=== PATIENT | female | born 1955 | race Two or more races ===

== ENCOUNTER 2018-03-09 07:45 | Inpatient (IN) | payer BC ==
[2018-03-09] MEDS ORDERED: DILTIAZEM HCL INJ 25 MG/5 ML VIAL IV ONE (08:24)
[2018-03-09] MEDS ORDERED: ASPIRIN 325 MG TABLET PO ONE (08:24)
[2018-03-09] MEDS ORDERED: DILTIAZEM HCL/D5W 125 MG/125 ML RTUINJ IV PRN (08:24)
[2018-03-09] MEDS ORDERED: METOPROLOL TARTRATE 25 MG TABLET PO ONE (08:25)
--- NOTE | 2018-03-09 08:26 | ER Document Report ---
ED Cardiac - General Chief Complaint: Palpitations Stated Complaint: IRREGULAR HEART BEAT Time Seen by Provider: 03/09/18 07:52 Notes: This is a 62-year-old female known history of A. fib with RVR. History of cardioversion with electricity 2 and medicine 1. Had ablation therapy done a few years ago. Developed rapid heart rate at around 6 AM this morning. No shortness of breath. No chest pain. No other major symptoms at this time. Denies any significant swelling in her legs. TRAVEL OUTSIDE OF THE [place] IN LAST 30 DAYS: No - HPI Patient complains to provider of: Palpitations. denies: Shortness of breath Use of: denies: Alcohol, Amphetamines, Bath salts, Caffeine, Cocaine, Decongestants, Other Was the onset of pain: Sudden Is the pain a: Chronic problem Quality of pain: None - Related Data Allergies/Adverse Reactions: No Known Allergies Allergy (Unverified 03/09/18 07:48) Past Medical History - General Information source: Patient - Social History Smoking Status: Current Every Day Smoker Chew tobacco use (# tins/day): No Frequency of alcohol use: Occasional Drug Abuse: None Family History: CAD Patient has suicidal ideation: No Patient has homicidal ideation: No - Past Medical History Cardiac Medical History: Reports: Hx Atrial Fibrillation - episodes Renal/ Medical History: Denies: Hx Peritoneal Dialysis Past Surgical History: Reports: Hx Tubal Ligation Review of Systems - Review of Systems Notes: Constitutional: denies: Chills, Diaphoresis, Fever, Malaise, Weakness EENT: denies: Eye discharge, Blurred vision, Tearing, Double vision, Nose congestion, Nose discharge, Throat swelling, Mouth pain Cardiovascular: denies: Chest pain or shortness of breath, denies edema. Positive for palpitations and tachycardia Respiratory: denies: Cough, Hurts to breathe, Wheezing, Shortness of breath Gastrointestinal: denies: Abdominal pain, Diarrhea, Nausea, Vomiting, Black stools, bright red blood in stool Genitourinary: denies: Burning, Dysuria, Discharge, Frequency, Flank pain, Hematuria Musculoskeletal: denies: Joint pain, Joint swelling, Muscle pain, Muscle stiffness, back pain Hematologic/Lymphatic: denies: Anemia, Easy bleeding, Easy bruising, Blood clots Neurological/Psychological: denies: Confusion, Dementia, Depression, Loss of consciousness Skin: No lesions, no masses, no skin breakdown, no abscesses Physical Exam - Vital signs Vitals: Pulse Resp BP Pulse Ox 145 H 20 107/79 97 03/09/18 07:51 03/09/18 07:51 03/09/18 07:51 03/09/18 07:51 Interpretation: Tachycardic - General General appearance: Appears well, Alert - HEENT Head: Normocephalic, Atraumatic Eyes: Normal Pupils: PERRL - Respiratory Respiratory status: No respiratory distress Chest status: Nontender Breath sounds: Normal Chest palpation: Normal - Cardiovascular Rhythm: Irregularly irregular, Tachycardia Heart sounds: Normal auscultation Murmur: No - Abdominal Inspection: Normal Distension: No distension Bowel sounds: Normal Tenderness: Nontender Organomegaly: No organomegaly - Back Back: Normal, Nontender - Extremities General upper extremity: Normal inspection, Nontender, Normal color, Normal ROM , Normal temperature General lower extremity: Normal inspection, Nontender, Normal color, Normal ROM , Normal temperature, Normal weight bearing. No: Chau's sign - Neurological Neuro grossly intact: Yes Cognition: Normal Orientation: AAOx4 [place] Coma Scale Eye Opening: Spontaneous [place] Coma Scale Verbal: Oriented Amber Coma Scale Motor: Obeys Commands Amber Coma Scale Total: 15 Speech: Normal Motor strength normal: LUE, RUE, LLE, RLE Sensory: Normal - Psychological Associated symptoms: Normal affect, Normal mood - Skin Skin Temperature: Warm Skin Moisture: Dry Skin Color: Normal Course - Re-evaluation Re-evalutation: 03/09/18 10:30 Patient with A. fib with rapid ventricular response with heart rate in the 140s. Not on anticoagulation but reports symptoms began suddenly at 6 AM. At this time starting on diltiazem bolus and diltiazem drip. Resting comfortably at this time. Will consult with hospitalist for admission at this time. 03/09/18 10:32 Laboratory 03/09/18 03/09/18 03/09/18 08:21 08:21 08:21 WBC 5.8 RBC 4.66 Hgb 14.9 Hct 43.7 MCV 94 MCH 32.1 MCHC 34.2 RDW 14.3 H Plt Count 268 Seg Neutrophils % 58.0 Lymphocytes % 33.0 Monocytes % 7.4 Eosinophils % 1.1 Basophils % 0.5 Absolute Neutrophils 3.4 Absolute Lymphocytes 1.9 Absolute Monocytes 0.4 Absolute Eosinophils 0.1 Absolute Basophils 0.0 Sodium 143.3 Potassium 4.0 Chloride 106 Carbon Dioxide 25 Anion Gap 12 BUN 17 Creatinine 0.85 Est GFR ( Amer) > 60 Est GFR (Non-Af Amer) > 60 Glucose 121 H Calcium 9.5 Total Bilirubin 0.8 Direct Bilirubin 0.3 Neonat Total Bilirubin Not Reportable Neonat Direct Bilirubin Not Reportable Neonat Indirect Bili Not Reportable AST 18 ALT 28 Alkaline Phosphatase 46 Creatine Kinase 54 CK-MB (CK-2) 0.35 Troponin I < 0.012 NT-Pro-B Natriuret Pep 100 Total Protein 6.7 Albumin 4.0 Chest X-Ray 03/09/18 08:24 IMPRESSION: NO ACUTE RADIOGRAPHIC FINDING IN THE CHEST. - Vital Signs Vital signs: Temp Pulse Resp BP Pulse Ox 98.8 F 78 10 L 96/64 L 96 03/09/18 08:01 03/09/18 08:01 03/09/18 10:21 03/09/18 10:21 03/09/18 10:21 - Laboratory Result Diagrams: 03/09/18 08:21 03/09/18 08:21 Laboratory results interpreted by me: 03/09/18 03/09/18 08:21 08:21 RDW 14.3 H Glucose 121 H - EKG Interpretation by Nd EKG shows normal: QRS Complexes, ST-T Waves Rate: Tachycardia Rhythm: Arrthymia Critical Care Note - Critical Care Note Total time excluding time spent on procedures (mins): 35 Comments: IV medication for rate control, consultation with specialists Discharge - Discharge Clinical Impression: Atrial fibrillation with rapid ventricular response Condition: Good Disposition: ADMITTED INPATIENT Admitting Provider: Hospitalist - [facility] Admitted: IMCU Referrals: IRMA LANIER PA-C [NO LOCAL MD] - Follow up as needed
[2018-03-09 08:32] LABS: ABSOLUTE EOSINOPHILS # (AUTO) 0.1 10^3/uL (0.0-0.6); ABSOLUTE LYMPHOCYTES (AUTO) 1.9 10^3/uL (0.5-4.7); ABSOLUTE MONOCYTES (AUTO) 0.4 10^3/uL (0.1-1.4); ABSOLUTE NEUT (AUTO) 3.4 10^3/uL (1.7-8.2); BASOPHILS % (AUTO) 0.5 % (0-2); EOSINOPHILS % (AUTO) 1.1 % (0-6); HEMATOCRIT 43.7 % (36.0-47.0); HEMOGLOBIN 14.9 g/dL (12.0-15.5); MEAN CORPUSCULAR HEMOGLOBIN 32.1 pg (27.0-33.4); MEAN CORPUSCULAR HGB CONC 34.2 g/dL (32.0-36.0); MEAN CORPUSCULAR VOLUME 94 fl (80-97); MONOCYTES % (AUTO) 7.4 % (3-13); PLATELET COUNT 268 10^3/uL (150-450); RED BLOOD COUNT 4.66 10^6/uL (3.72-5.28); RED CELL DISTRIBUTION WIDTH 14.3 % (11.5-14.0); TOTAL CELLS COUNTED % (AUTO) 100 %; WHITE BLOOD COUNT 5.8 10^3/uL (4.0-10.5)
[2018-03-09 08:47] LABS: ALANINE AMINOTRANSFERASE 28 U/L (9-52); ALKALINE PHOSPHATASE 46 U/L (38-126); ANION GAP 12 (5-19); ASPARTATE AMINO TRANSFERASE 18 U/L (14-36); BILIRUBIN,DIRECT 0.3 mg/dL (0.0-0.4); BILIRUBIN,TOTAL 0.8 mg/dL (0.2-1.3); BLOOD UREA NITROGEN 17 mg/dL (7-20); CALCIUM 9.5 mg/dL (8.4-10.2); CARBON DIOXIDE 25 mmol/L (22-30); CHLORIDE 106 mmol/L (98-107); CREATINE KINASE 54 U/L (30-135); GLUCOSE 121 mg/dL (75-110); SODIUM 143.3 mmol/L (137-145); TOTAL PROTEIN 6.7 g/dL (6.3-8.2)
[2018-03-09 09:07] LABS: CREATINE KINASE MB 0.35 ng/mL (<4.55); NT PRO BNP 100 pg/mL (5-900)
[2018-03-09 09:10] LABS: TROPONIN I < 0.012 ng/mL
--- NOTE | 2018-03-09 09:52 | RADIOLOGY REPORT (SQ) ---
EXAM DESCRIPTION: CHEST SINGLE VIEW COMPLETED DATE/TIME: 03/09/2018 9:30 am REASON FOR STUDY: sob COMPARISON: None. EXAM PARAMETERS: NUMBER OF VIEWS: One view. TECHNIQUE: Single frontal radiographic view of the chest acquired. RADIATION DOSE: NA LIMITATIONS: None. FINDINGS: LUNGS AND PLEURA: No opacities, masses or pneumothorax. No pleural effusion. MEDIASTINUM AND HILAR STRUCTURES: Mild rightward tracheal deviation at the thoracic inlet, probably d ue to enlarged left lobe thyroid. HEART AND VASCULAR STRUCTURES: Heart normal in size. Normal vasculature. BONES: No acute findings. HARDWARE: Implanted cardiac monitoring device over the anterior left chest OTHER: No other significant finding. IMPRESSION: NO ACUTE RADIOGRAPHIC FINDING IN THE CHEST. TECHNICAL DOCUMENTATION: JOB ID: [id number] [employer]- All Rights Reserved Reading location - IP/workstation name: [email or web address]
[2018-03-09] MEDS ORDERED: ONDANSETRON HCL INJ/PF 4 MG/2 ML SDV IV PRN (11:03)
[2018-03-09] MEDS ORDERED: ACETAMINOPHEN 325 MG TABLET PO PRN (11:03)
--- NOTE | 2018-03-09 11:31 | EKG REPORT ---
SEVERITY:- ABNORMAL ECG - ATRIAL FIBRILLATION LEFT AXIS DEVIATION : Confirmed by: Francie Roger MD 09-Mar-2018 11:30:47
--- NOTE | 2018-03-09 11:32 | EKG REPORT ---
SEVERITY:- ABNORMAL ECG - ATRIAL FIBRILLATION LEFT AXIS DEVIATION BORDERLINE T ABNORMALITIES, ANT-LAT LEADS VENTRICULAR ECTOPIC BEAT : Confirmed by: Francie Roger MD 09-Mar-2018 11:31:42
--- NOTE | 2018-03-09 13:55 | PDOC H&P ---
History of Present Illness Admission Date/PCP: 03/09/18 10:52 DI GARCIA MD Patient complains of: Palpitations. History of Present Illness: GARY MALONE is a 62 year old female who has a past medical history positive for atrial fibrillation. She has been electively cardioverted twice, and then she underwent ablation 4 years ago. She states that she felt most asymptomatic until 2-3 months ago she began having fleeting sensations of "fluttering in her chest". She states that it would last only moments and then go away on its own. These sensations have become more frequent. She has seen her claim analyst at [facility] about this this week. He has ordered an echocardiogram. She states that when an EKG was performed by her PCP, it only demonstrated normal sinus rhythm. This morning she states that she was awoken from sleep with the sensation. She came to the ED when it did not resolve. The patient denies shortness of breath, chest pain, dizziness, nausea, weakness, or syncope. In the ED she was given a 20 mg bolus and then a drip at 7.5. Her rate is controlled. She will be placed on xarelto for stroke prophylaxis as that is what she took previously when she was in atrial fibrillation. Past Medical History Cardiac Medical History: Reports: Atrial Fibrillation - episodes, Hypertension Psychiatric Medical History: Reports: Tobacco Dependency Past Surgical History Past Surgical History: Reports: Tubal Ligation Social History Smoking Status: Current Every Day Smoker Frequency of Alcohol Use: Occasional Family History Family History: CAD, DM Parental Family History Reviewed: Yes Children Family History Reviewed: Yes Sibling(s) Family History Reviewed.: Yes Medication/Allergy Home Medications: Aspirin [Aspirin EC] 81 mg PO DAILY 03/09/18 Hydrochlorothiazide [Hydrodiuril 25 mg Tablet] 25 mg PO DAILYP PRN 03/09/18 Allergies/Adverse Reactions: No Known Allergies Allergy (Unverified 03/09/18 07:48) Review of Systems Constitutional: ABSENT: chills, fatigue, fever(s), headache(s), night sweats, weakness Eyes: ABSENT: visual disturbances Ears: ABSENT: hearing changes Nose, Mouth, and Throat: ABSENT: headache(s), sore throat, vertigo Cardiovascular: PRESENT: palpitations. ABSENT: chest pain, dyspnea on exertion , edema, orthropnea Respiratory: ABSENT: cough, dyspnea, sputum Gastrointestinal: ABSENT: abdominal pain, constipation, diarrhea, nausea, vomiting Genitourinary: ABSENT: dysuria, hematuria Musculoskeletal: ABSENT: deformity, joint swelling, muscle weakness Integumentary: ABSENT: pruritus, rash, wounds Neurological: ABSENT: abnormal gait, abnormal movements, focal weakness, lack of coordination, numbness, paresthesias, syncope, tingling, tremor(s), vertigo, weakness Psychiatric: ABSENT: anxiety, depression Endocrine: ABSENT: cold intolerance, flushing, polydipsia, polyphagia, polyuria Hematologic/Lymphatic: ABSENT: easy bleeding, easy bruising, lymphadenopathy Physical Exam Vital Signs: Temp Pulse Resp BP Pulse Ox 98.8 F 78 18 110/77 98 03/09/18 08:01 03/09/18 08:01 03/09/18 13:01 03/09/18 13:01 03/09/18 13:01 General appearance: PRESENT: no acute distress, cooperative, well-developed, well-nourished Head exam: PRESENT: atraumatic, normocephalic Eye exam: PRESENT: EOMI, PERRLA, other - no scleral injectino. ABSENT: scleral icterus Ear exam: ABSENT: bleeding, drainage, normal external ear exam Mouth exam: PRESENT: moist, neck supple, tongue midline. ABSENT: laceration Throat exam: ABSENT: post pharyngeal erythema, tonsillar erythema, tonsillar exudate, tonsillogmegaly Neck exam: ABSENT: carotid bruit, JVD, lymphadenopathy, meningismus, tracheal deviation Respiratory exam: PRESENT: other - No increased work of breathing.. ABSENT: rales, rhonchi, wheezes Cardiovascular exam: PRESENT: RRR. ABSENT: gallop, rubs, systolic murmur Pulses: PRESENT: normal carotid pulses, normal dorsalis pedis pul GI/Abdominal exam: PRESENT: normal bowel sounds. ABSENT: ascites, diminished bowel sounds, distended, guarding, hernia, mass, organolmegaly, soft, tenderness Rectal exam: PRESENT: deferred Extremities exam: ABSENT: calf tenderness, pedal edema, tenderness, +1 edema Musculoskeletal exam: ABSENT: deformity, normal inspection, tenderness Neurological exam: PRESENT: alert, awake, oriented to person, oriented to place , oriented to time, oriented to situation, CN II-XII grossly intact. ABSENT: motor sensory deficit Psychiatric exam: PRESENT: appropriate affect, normal mood Skin exam: PRESENT: dry, intact, warm Results Laboratory Results: 03/09/18 03/09/18 03/09/18 08:21 08:21 08:21 WBC 5.8 RBC 4.66 Hgb 14.9 Hct 43.7 MCV 94 MCH 32.1 MCHC 34.2 RDW 14.3 H Plt Count 268 Seg Neutrophils % 58.0 Sodium 143.3 Potassium 4.0 Chloride 106 Carbon Dioxide 25 Anion Gap 12 BUN 17 Creatinine 0.85 Est GFR ( Amer) > 60 Est GFR (Non-Af Amer) > 60 Glucose 121 H Calcium 9.5 Total Bilirubin 0.8 Direct Bilirubin 0.3 AST 18 ALT 28 Alkaline Phosphatase 46 Creatine Kinase 54 CK-MB (CK-2) 0.35 Troponin I < 0.012 NT-Pro-B Natriuret Pep 100 Total Protein 6.7 Albumin 4.0 Impressions: Chest X-Ray 03/09/18 08:24 IMPRESSION: NO ACUTE RADIOGRAPHIC FINDING IN THE CHEST. Status: Image reviewed by me - No acute pathology. No edema, effusions, or infiltrate visible. Assessment & Plan - Diagnosis (1) Hypertension Qualifiers: Hypertension type: essential hypertension Qualified Code(s): I10 - Essential (primary) hypertension Is this a current diagnosis for this admission?: Yes Plan: The patient will be discharged on diltiazem. Home antihypertensives may need to be altered before discharge. (2) Tobacco abuse Is this a current diagnosis for this admission?: Yes Plan: Nicotine patch and tobacco cessation counseling. (3) Atrial fibrillation with rapid ventricular response Is this a current diagnosis for this admission?: Yes Plan: IV diltiazem. Convert to PO diltiazem. Xarelto for stroke prophylaxis. Will not get echocardiogram as the patient is in the midst of a work up by her claim analyst at [employer]. - Time Time Spent: 50 to 70 Minutes Medications reviewed and adjusted accordingly: Yes Anticipated discharge: Home - Inpatient Certification Based on my medical assessment, after consideration of the patient's comorbidities, presenting symptoms, or acuity I expect that the services needed warrant INPATIENT care.: Yes I certify that my determination is in accordance with my understanding of Medicare's requirements for reasonable and necessary INPATIENT services [42 CFR 412.3e].: Yes Medical Necessity: Need Close Monitoring Due to Risk of Patient Decompensation, Need For Continuous Telemetry Monitoring, Risk of Complication if Not Cared For in Hospital
[2018-03-09] MEDS: RIVAROXABAN 10 MG TABLET PO SCH (17:20)
[2018-03-09] MEDS: DILTIAZEM HCL/D5W 125 MG/125 ML RTUINJ IV PRN (20:36)
[2018-03-10 05:03] LABS: ABSOLUTE EOSINOPHILS # (AUTO) 0.1 10^3/uL (0.0-0.6); ABSOLUTE LYMPHOCYTES (AUTO) 2.7 10^3/uL (0.5-4.7); ABSOLUTE MONOCYTES (AUTO) 0.7 10^3/uL (0.1-1.4); ABSOLUTE NEUT (AUTO) 4.9 10^3/uL (1.7-8.2); BASOPHILS % (AUTO) 0.4 % (0-2); HEMATOCRIT 43.2 % (36.0-47.0); HEMOGLOBIN 14.9 g/dL (12.0-15.5); LYMPHOCYTES % (AUTO) 32.4 % (13-45); MEAN CORPUSCULAR HEMOGLOBIN 32.6 pg (27.0-33.4); MEAN CORPUSCULAR HGB CONC 34.5 g/dL (32.0-36.0); MEAN CORPUSCULAR VOLUME 95 fl (80-97); PLATELET COUNT 267 10^3/uL (150-450); RED BLOOD COUNT 4.58 10^6/uL (3.72-5.28); RED CELL DISTRIBUTION WIDTH 14.4 % (11.5-14.0); SEGMENTED NEUTROPHILS % (AUTO) 58.2 % (42-78); TOTAL CELLS COUNTED % (AUTO) 100 %; WHITE BLOOD COUNT 8.4 10^3/uL (4.0-10.5)
[2018-03-10 05:22] LABS: ANION GAP 11 (5-19); BLOOD UREA NITROGEN 17 mg/dL (7-20); CALCIUM 9.2 mg/dL (8.4-10.2); CARBON DIOXIDE 26 mmol/L (22-30); CHLORIDE 106 mmol/L (98-107); GLUCOSE 110 mg/dL (75-110); POTASSIUM 4.2 mmol/L (3.6-5.0); SODIUM 142.9 mmol/L (137-145)
[2018-03-10] MEDS: DILTIAZEM HCL/D5W 125 MG/125 ML RTUINJ IV PRN (07:15)
--- NOTE | 2018-03-10 11:35 | EKG REPORT ---
SEVERITY:- ABNORMAL ECG - ATRIAL FIBRILLATION, V-RATE 78-92 LEFT AXIS DEVIATION CONSIDER ANTERIOR INFARCT BORDERLINE T ABNORMALITIES, ANTERIOR LEADS : Confirmed by: Francie Roger MD 10-Mar-2018 11:34:40
[2018-03-10] MEDS ORDERED: DILTIAZEM HCL 30 MG TABLET PO SCH (12:00)
[2018-03-10] MEDS ORDERED: DILTIAZEM HCL INJ 25 MG/5 ML VIAL IV PRN (12:43)
[2018-03-10] MEDS: DILTIAZEM HCL 120 MG CAP.SR.24H PO SCH ×2 (13:40→22:00)
--- NOTE | 2018-03-10 13:41 | PDOC PROGRESS REPORT ---
Subjective Progress Note for:: 03/10/18 Subjective:: The patient is concerned that she is still in atrial fibrillation despite the fact that her rate is well controlled. She has requested a cardiology consult. I have requested the consult. Reason For Visit: RECURRENT ATRIAL FIBRILLATION WITH RVR Physical Exam Vital Signs: Temp Pulse Resp BP Pulse Ox 98.1 F 78 12 101/65 99 03/10/18 03:27 03/10/18 06:00 03/10/18 03:27 03/10/18 06:00 03/10/18 03:27 Intake & Output 03/09/18 03/10/18 03/11/18 06:59 06:59 06:59 Intake Total 1184 33 Balance 1184 33 Weight 91.2 kg General appearance: PRESENT: no acute distress, cooperative, morbidly obese Respiratory exam: PRESENT: other - No increased work of breathing. No wheezes, rales, or rhonchi. No tactile fremitus. Cardiovascular exam: PRESENT: irregular rhythm, other - Rate is controlled.. ABSENT: gallop, rubs, systolic murmur Pulses: PRESENT: other - Diminished distal pulses. GI/Abdominal exam: PRESENT: other - The abdomen is morbidly obese. Bowel sounds are distant. I am unable to evaluate the abdomen for organomegaly, masses, or hernias. Neurological exam: PRESENT: alert, awake, oriented to person, oriented to place , oriented to time, oriented to situation, CN II-XII grossly intact. ABSENT: motor sensory deficit Psychiatric exam: PRESENT: anxious, depressed Skin exam: PRESENT: dry, intact, warm Results Laboratory Results: 03/10/18 04:12 03/10/18 04:12 03/10/18 03/10/18 04:12 04:12 WBC 8.4 RBC 4.58 Hgb 14.9 Hct 43.2 MCV 95 MCH 32.6 MCHC 34.5 RDW 14.4 H Plt Count 267 Seg Neutrophils % 58.2 Lymphocytes % 32.4 Monocytes % 8.0 Eosinophils % 1.0 Basophils % 0.4 Absolute Neutrophils 4.9 Absolute Lymphocytes 2.7 Absolute Monocytes 0.7 Absolute Eosinophils 0.1 Absolute Basophils 0.0 Sodium 142.9 Potassium 4.2 Chloride 106 Carbon Dioxide 26 Anion Gap 11 BUN 17 Creatinine 0.84 Est GFR ( Amer) > 60 Est GFR (Non-Af Amer) > 60 Glucose 110 Calcium 9.2 Impressions: Chest X-Ray 03/09/18 08:24 IMPRESSION: NO ACUTE RADIOGRAPHIC FINDING IN THE CHEST. Assessment & Plan - Diagnosis (1) Hypertension Qualifiers: Hypertension type: essential hypertension Qualified Code(s): I10 - Essential (primary) hypertension Is this a current diagnosis for this admission?: Yes Plan: Well controlled currently. (2) Tobacco abuse Is this a current diagnosis for this admission?: Yes Plan: Nicotine patch and tobacco cessation counseling. (3) Atrial fibrillation with rapid ventricular response Is this a current diagnosis for this admission?: Yes Plan: IV diltiazem. Convert to PO diltiazem. Xarelto for stroke prophylaxis. Cardiology is consulted at the patient's request. She sees a atomic physics professor at [employer] who follows her for her atrial fibrillation and has an appointment for an echocardiogram with them on Wednesday. - Time Time Spent with patient: 25-34 minutes Medications reviewed and adjusted accordingly: Yes Anticipated discharge: Home Within: within 24 hours
[2018-03-10] MEDS: RIVAROXABAN 10 MG TABLET PO SCH (17:53)
--- NOTE | 2018-03-10 22:11 | PDOC CONSULTATION ---
Consultation Consult Date: 03/10/18 Attending physician:: JOHN JOAQUIN Consult reason:: A FIB RVR History of Present Illness Admission Date/PCP: 03/09/18 10:52 DI GARCIA MD Patient complains of: Atrial fibrillation, palpitations History of Present Illness: GARY MALONE is a 62 year old female who has a past medical history positive for atrial fibrillation. She has been electively cardioverted twice, and then she underwent ablation 4 years ago. She states that she felt most asymptomatic until 2-3 months ago she began having fleeting sensations of "fluttering in her chest". She states that it would last only moments and then go away on its own. These sensations have become more frequent. She has seen her final inspector balance wheel at [employer] about this this week. He has ordered an echocardiogram. She states that when an EKG was performed by her PCP, it only demonstrated normal sinus rhythm. This morning she states that she was awoken from sleep with the sensation. She came to the ED when it did not resolve. The patient denies shortness of breath, chest pain, dizziness, nausea, weakness, or syncope. In the ED she was given a 20 mg bolus and then a drip at 7.5. Her rate is controlled. She will be placed on xarelto for stroke prophylaxis as that is what she took previously when she was in atrial fibrillation. This history obtained by the hospitalist was reviewed and confirmed with the patient. Patient does have significant sleep problem, she has difficulty falling asleep and staying asleep. There is some history of snoring. Past Medical History Cardiac Medical History: Reports: Atrial Fibrillation - episodes, Hypertension Psychiatric Medical History: Reports: Tobacco Dependency Past Surgical History Past Surgical History: Reports: Tubal Ligation Social History Information Source: Patient Smoking Status: Current Every Day Smoker Number of Years Smokin Frequency of Alcohol Use: Social Hx Recreational Drug Use: No Hx Prescription Drug Abuse: No - Advance Directive Resuscitation Status: Full Code Family History Family History: CAD, DM Parental Family History Reviewed: Yes Children Family History Reviewed: Yes Sibling(s) Family History Reviewed.: Yes Medication/Allergy Home Medications: Aspirin [Aspirin EC] 81 mg PO DAILY 03/09/18 Diltiazem HCl [Cardizem Cd 120 mg Capsule] 120 mg PO Q12 #60 cap.sr.24h Rivaroxaban [Xarelto 10 mg Tablet] 20 mg PO WSUPPER #60 tablet 03/11/18 Allergies/Adverse Reactions: Latex, Natural Rubber Allergy (Verified 03/09/18 16:28) Review of Systems Review of Systems: Please see history of present illness and past medical history as wall. Constitutional: No fever or chills reported. Head : No recent chronic headaches, recent head injury. Eyes: No recent eye pain, diplopia, redness, discharge, acute visual changes. Ears: No recent chronic ear pain, acute hearing loss, ear discharge. Oral cavity: No recent ulcerations, bleeding, oral cavity discomfort. Neck: No recent acute neck pain reported. Hematologic: No recent easy bruising or bleeding. Lymphatic: No recent lymph node enlargement reported. Cardiovascular system review: See history of present illness. Respiratory system review: No hemoptysis or blood clots in the lungs reported. Mild Shortness of breath on exertion Gastrointestinal system review: Negative for any recent acute hematemesis, melena. Genitourinary system review: No recent acute or chronic hematuria, flank pain, UTI etc. reported. Skin system review: Negative for any recent abnormal bruising, no rash, no pruritus reported. Neurologic: No prior history of strokes, mini strokes, seizure disorder. Psychologic: No history of major psychosis or major depression reported. Musculoskeletal: Minor aches and pains reported. No acute joint swelling reported. Endocrine: No recent polyuria, polydipsia, recent heat or cold intolerance. History of difficulty falling asleep, staying asleep, snoring, daytime fatigue and sleepiness Physical Exam Vital Signs: Temp Pulse Resp BP Pulse Ox 97.8 F 68 16 110/66 96 03/10/18 19:28 03/10/18 19:28 03/10/18 19:28 03/10/18 19:28 03/10/18 19:28 Intake & Output 03/09/18 03/10/18 03/11/18 06:59 06:59 06:59 Intake Total 1184 570 Balance 1184 570 Weight 91.2 kg Exam: GENERAL: well-nourished and in no acute distress. Alert and oriented x3 HEAD: Atraumatic, normocephalic. EYES: Pupils equal round and reactive to light, extraocular movements intact, sclera anicteric, conjunctiva are normal. ENT: TMs normal, nares patent, oropharynx clear without exudates. Moist mucous membranes. No oral ulcerations or bleeding gums noted NECK: supple without lymphadenopathy. Trachea is central. No cervical or axillary lymphadenopathy noted. Carotids are 2+, JVD WNL LUNGS: Respiration seems nonlabored, no significant accessory muscle action noted. Breath sounds clear to auscultation bilaterally and equal noted. No wheezes rales or rhonchi noted. No significant dullness noted on percussion. CHEST: Palpation of the chest wall shows no significant chest wall tenderness. 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 ABDOMEN: Soft, no significant tenderness appreciated, normoactive bowel sounds. No guarding, no rebound. No rigidity noted . No masses appreciated. EXTREMITIES: Pedal pulses are 1-2+, no calf tenderness noted. No clubbing or cyanosis. negative pedal edema noted NEUROLOGICAL: Focused neurological exam showed no significant neurologic deficit. Normal speech, no focal weakness appreciated. PSYCH: Normal mood, normal affect. Judgment and insight within normal limits. SKIN: No significant ecchymosis, skin is noted to be warm. MUSCULOSKELETAL EXAM: No significant acute joint swelling noted. Results Laboratory Results: 03/10/18 04:12 03/10/18 04:12 03/10/18 03/10/18 04:12 04:12 WBC 8.4 RBC 4.58 Hgb 14.9 Hct 43.2 MCV 95 MCH 32.6 MCHC 34.5 RDW 14.4 H Plt Count 267 Seg Neutrophils % 58.2 Lymphocytes % 32.4 Monocytes % 8.0 Eosinophils % 1.0 Basophils % 0.4 Absolute Neutrophils 4.9 Absolute Lymphocytes 2.7 Absolute Monocytes 0.7 Absolute Eosinophils 0.1 Absolute Basophils 0.0 Sodium 142.9 Potassium 4.2 Chloride 106 Carbon Dioxide 26 Anion Gap 11 BUN 17 Creatinine 0.84 Est GFR ( Amer) > 60 Est GFR (Non-Af Amer) > 60 Glucose 110 Calcium 9.2 EKG Comments: Atrial fibrillation with RVR, no acute ST-T wave changes are noted Impressions: Chest X-Ray 03/09/18 08:24 IMPRESSION: NO ACUTE RADIOGRAPHIC FINDING IN THE CHEST. Assessment & Plan - Diagnosis (1) Atrial fibrillation with rapid ventricular response Is this a current diagnosis for this admission?: Yes (2) Hypertension Qualifiers: Hypertension type: essential hypertension Qualified Code(s): I10 - Essential (primary) hypertension Is this a current diagnosis for this admission?: Yes (3) Tobacco abuse Is this a current diagnosis for this admission?: Yes (4) Sleep disorder Is this a current diagnosis for this admission?: Yes - Notes Notes: Cardiazem CD 120 mg BID ordered. Consider adding Multaq. Continue Xarelto Rx. Patient declined 2DECHO and NST. Atrial fibrillation with rapid ventricular response: Recommend switch to p.o. Cardizem at 120 mg p.o. twice daily. Continue Xarelto therapy. Patient was advised to undergo a 2D echo and a nuclear stress test. However this she declined. Hypertension: Blood pressure goal should be 135/95 in this relatively young lady. This was discussed. Tobacco abuse: Patient has been advised to quit smoking. Sleep disorder: Discussed that she might like to be tested for sleep apnea. She claims that she had this test several years ago but feels that she might benefit from a repeat study as atrial fibrillation is linked to underlying sleep apnea and treatment of sleep apnea can prevent recurrences of atrial fibrillation. - Time Time Spent: 30 to 50 Minutes Medications reviewed and adjusted accordingly: Yes
[2018-03-11 05:09] LABS: ABSOLUTE EOSINOPHILS # (AUTO) 0.1 10^3/uL (0.0-0.6); ABSOLUTE LYMPHOCYTES (AUTO) 2.9 10^3/uL (0.5-4.7); ABSOLUTE MONOCYTES (AUTO) 0.6 10^3/uL (0.1-1.4); BASOPHILS % (AUTO) 0.5 % (0-2); HEMATOCRIT 45.5 % (36.0-47.0); HEMOGLOBIN 15.3 g/dL (12.0-15.5); LYMPHOCYTES % (AUTO) 38.2 % (13-45); MEAN CORPUSCULAR HEMOGLOBIN 31.7 pg (27.0-33.4); MEAN CORPUSCULAR HGB CONC 33.7 g/dL (32.0-36.0); MEAN CORPUSCULAR VOLUME 94 fl (80-97); MONOCYTES % (AUTO) 7.4 % (3-13); PLATELET COUNT 252 10^3/uL (150-450); RED BLOOD COUNT 4.83 10^6/uL (3.72-5.28); SEGMENTED NEUTROPHILS % (AUTO) 52.9 % (42-78); TOTAL CELLS COUNTED % (AUTO) 100 %; WHITE BLOOD COUNT 7.6 10^3/uL (4.0-10.5)
[2018-03-11 05:27] LABS: ANION GAP 12 (5-19); BLOOD UREA NITROGEN 19 mg/dL (7-20); CALCIUM 9.3 mg/dL (8.4-10.2); CARBON DIOXIDE 23 mmol/L (22-30); CHLORIDE 108 mmol/L (98-107); GLUCOSE 106 mg/dL (75-110); POTASSIUM 4.1 mmol/L (3.6-5.0); SODIUM 142.5 mmol/L (137-145)
[2018-03-11] MEDS: DILTIAZEM HCL 120 MG CAP.SR.24H PO SCH (09:51)
[2018-03-11 12:37] VITALS: BP 107/79
--- NOTE | 2018-03-11 14:14 | PDOC DISCHARGE SUMMARY ---
General - Admit/Disc Date/PCP Admission Date/Primary Care Provider: 03/09/18 10:52 DI GARCIA MD Discharge Date: 03/11/18 - Discharge Diagnosis (1) Hypertension Is this a current diagnosis for this admission?: Yes (2) Tobacco abuse Is this a current diagnosis for this admission?: Yes (3) Atrial fibrillation with rapid ventricular response Is this a current diagnosis for this admission?: Yes - Additional Information Resuscitation Status: Full Code Discharge Diet: Cardiac Discharge Activity: Activity As Tolerated Prescriptions: Diltiazem HCl [Cardizem Cd 120 mg Capsule] 120 mg PO Q12 #60 cap.sr.24h Rivaroxaban [Xarelto 10 mg Tablet] 20 mg PO WSUPPER #60 tablet Home Medications: Aspirin [Aspirin EC] 81 mg PO DAILY 03/09/18 Diltiazem HCl [Cardizem Cd 120 mg Capsule] 120 mg PO Q12 #60 cap.sr.24h Rivaroxaban [Xarelto 10 mg Tablet] 20 mg PO WSUPPER #60 tablet 03/11/18 History of Present Illness History of Present Illness: GARY MALONE is a 62 year old female who has a past medical history positive for atrial fibrillation. She has been electively cardioverted twice, and then she underwent ablation 4 years ago. She states that she felt most asymptomatic until 2-3 months ago she began having fleeting sensations of "fluttering in her chest". She states that it would last only moments and then go away on its own. These sensations have become more frequent. She has seen her process camera operator at [employer] about this this week. He has ordered an echocardiogram. She states that when an EKG was performed by her PCP, it only demonstrated normal sinus rhythm. This morning she states that she was awoken from sleep with the sensation. She came to the ED when it did not resolve. The patient denies shortness of breath, chest pain, dizziness, nausea, weakness, or syncope. In the ED she was given a 20 mg bolus and then a drip at 7.5. Her rate is controlled. She will be placed on xarelto for stroke prophylaxis as that is what she took previously when she was in atrial fibrillation. Hospital Course Hospital Course: The patient was started on a cardizem gtt. She was placed on xarelto for stroke prophylaxis as the patient had taken xarelto for that indication before. She was admitted to a telemetry bed. She was started on PO diltiazem and weaned off of the IV medication. The patient requested a cardiology consult and Dr. Gonzalez was consulted. He adjusted the patient's diltiazem. Today the patient's heart rate is well controlled on diltiazem. She will discharge to home. She has an echocardiogram scheduled for Wednesday. She will follow up with her cardiologists and her PCP. Physical Exam Vital Signs: Temp Pulse Resp BP Pulse Ox 97.8 F 73 16 107/79 99 03/11/18 12:33 03/11/18 12:33 03/11/18 12:33 03/11/18 12:33 03/11/18 12:33 Intake & Output 03/10/18 03/11/18 03/12/18 06:59 06:59 06:59 Intake Total 1184 770 450 Balance 1184 770 450 Weight 91.2 kg 90.3 kg General appearance: PRESENT: no acute distress, cooperative, morbidly obese Respiratory exam: PRESENT: other - No increased work of breathing. No wheezes, rales, or rhonchi. Cardiovascular exam: PRESENT: RRR, other - No lateral PMI. No thrills.. ABSENT : gallop, rubs, systolic murmur Pulses: PRESENT: other - Diminished distal pulses. GI/Abdominal exam: PRESENT: normal bowel sounds, soft. ABSENT: hernia, mass, organolmegaly, tenderness Rectal exam: PRESENT: deferred Extremities exam: ABSENT: clubbing, pedal edema, tenderness Musculoskeletal exam: PRESENT: normal inspection. ABSENT: deformity, tenderness Neurological exam: PRESENT: alert, awake, oriented to person, oriented to place , oriented to time, oriented to situation, CN II-XII grossly intact. ABSENT: motor sensory deficit Psychiatric exam: PRESENT: appropriate affect, normal mood Skin exam: PRESENT: dry, intact, warm Results Laboratory Results: 03/11/18 04:20 03/11/18 04:20 03/11/18 03/11/18 04:20 04:20 WBC 7.6 RBC 4.83 Hgb 15.3 Hct 45.5 MCV 94 MCH 31.7 MCHC 33.7 RDW 14.0 Plt Count 252 Seg Neutrophils % 52.9 Lymphocytes % 38.2 Monocytes % 7.4 Eosinophils % 1.0 Basophils % 0.5 Absolute Neutrophils 4.0 Absolute Lymphocytes 2.9 Absolute Monocytes 0.6 Absolute Eosinophils 0.1 Absolute Basophils 0.0 Sodium 142.5 Potassium 4.1 Chloride 108 H Carbon Dioxide 23 Anion Gap 12 BUN 19 Creatinine 0.84 Est GFR ( Amer) > 60 Est GFR (Non-Af Amer) > 60 Glucose 106 Calcium 9.3 Impressions: Chest X-Ray 03/09/18 08:24 IMPRESSION: NO ACUTE RADIOGRAPHIC FINDING IN THE CHEST. Qualifiers - * PATIENT BEING DISCHARGED WITH ANY OF THE FOLLOWING DIAGNOSIS: No
--- NOTE | 2018-03-11 20:40 | PDOC PROGRESS REPORT ---
Subjective Progress Note for:: 03/11/18 Subjective:: Patient seen on morning rounds. Pt is denying any chest arm or neck discomfort. Patient denying any PND, orthopnea. Patient denied any sustained palpitations, dizziness, syncope, near syncope. Patient denying any fever chills. Patient denying any other significant discomfort. Patient is maintaining atrial fibrillation but with heart rate much better controlled. Patient currently on p.o. medications Review of systems: Rest review of systems negative. Medications: Medications have been reviewed. Reason For Visit: RECURRENT ATRIAL FIBRILLATION WITH RVR Physical Exam Vital Signs: Temp Pulse Resp BP Pulse Ox 97.8 F 73 16 107/79 99 03/11/18 12:33 03/11/18 12:33 03/11/18 12:33 03/11/18 12:33 03/11/18 12:33 Intake & Output 03/10/18 03/11/18 03/12/18 06:59 06:59 06:59 Intake Total 1184 770 450 Balance 1184 770 450 Weight 91.2 kg 90.3 kg Exam: GENERAL: well-nourished and in no acute distress. Alert and oriented x3 HEAD: Atraumatic, normocephalic. EYES: Pupils equal round and reactive to light, extraocular movements intact, sclera anicteric, conjunctiva are normal. ENT: TMs normal, nares patent, oropharynx clear without exudates. Moist mucous membranes. No oral ulcerations or bleeding gums noted NECK: supple without lymphadenopathy. Trachea is central. No cervical or axillary lymphadenopathy noted. Carotids are 2+, JVD WNL LUNGS: Respiration seems nonlabored, no significant accessory muscle action noted. Breath sounds clear to auscultation bilaterally and equal noted. No wheezes rales or rhonchi noted. No significant dullness noted on percussion. CHEST: Palpation of the chest wall shows no significant chest wall tenderness. 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 ABDOMEN: Soft, no significant tenderness appreciated, normoactive bowel sounds. No guarding, no rebound. No rigidity noted . No masses appreciated. EXTREMITIES: Pedal pulses are 1-2+, no calf tenderness noted. No clubbing or cyanosis. negative pedal edema noted NEUROLOGICAL: Focused neurological exam showed no significant neurologic deficit. Normal speech, no focal weakness appreciated. PSYCH: Normal mood, normal affect. Judgment and insight within normal limits. SKIN: No significant ecchymosis, skin is noted to be warm. MUSCULOSKELETAL EXAM: No significant acute joint swelling noted. Results Laboratory Results: 03/11/18 04:20 03/11/18 04:20 03/11/18 03/11/18 04:20 04:20 WBC 7.6 RBC 4.83 Hgb 15.3 Hct 45.5 MCV 94 MCH 31.7 MCHC 33.7 RDW 14.0 Plt Count 252 Seg Neutrophils % 52.9 Lymphocytes % 38.2 Monocytes % 7.4 Eosinophils % 1.0 Basophils % 0.5 Absolute Neutrophils 4.0 Absolute Lymphocytes 2.9 Absolute Monocytes 0.6 Absolute Eosinophils 0.1 Absolute Basophils 0.0 Sodium 142.5 Potassium 4.1 Chloride 108 H Carbon Dioxide 23 Anion Gap 12 BUN 19 Creatinine 0.84 Est GFR ( Amer) > 60 Est GFR (Non-Af Amer) > 60 Glucose 106 Calcium 9.3 Impressions: Chest X-Ray 03/09/18 08:24 IMPRESSION: NO ACUTE RADIOGRAPHIC FINDING IN THE CHEST. Assessment & Plan - Diagnosis (1) Atrial fibrillation with rapid ventricular response Is this a current diagnosis for this admission?: Yes (2) Hypertension Qualifiers: Hypertension type: essential hypertension Qualified Code(s): I10 - Essential (primary) hypertension Is this a current diagnosis for this admission?: Yes (3) Tobacco abuse Is this a current diagnosis for this admission?: Yes (4) Sleep disorder Is this a current diagnosis for this admission?: Yes (5) Obesity Qualifiers: Obesity type: unspecified obesity type Obesity classification: unspecified obesity classification Serious obesity comorbidity presence: unspecified whether serious comorbidity present Qualified Code(s): E66.9 - Obesity, unspecified Is this a current diagnosis for this admission?: Yes - Notes Notes: Atrial fibrillation with rapid ventricular response: Patient felt stable on Cardizem CD at 120 mg p.o. twice daily. Will discontinue multaq. Patient to follow-up with her own dental receptionist early next week. Continue Xarelto therapy. Patient was advised to undergo a 2D echo and a nuclear stress test. However this she declined. Hypertension: Blood pressure goal should be 135/95 in this relatively young lady. This was discussed. Tobacco abuse: Patient has been advised to quit smoking. Sleep disorder: Discussed that she might like to be tested for sleep apnea. She claims that she had this test several years ago but feels that she might benefit from a repeat study as atrial fibrillation is linked to underlying sleep apnea and treatment of sleep apnea can prevent recurrences of atrial fibrillation. Obesity: Patient has been advised in weight loss. Discussed that atrial fibrillation is associated with increased body mass and weight loss will help reduce recurrences. - Time Time with patient: 15-25 minutes - CODE STATUS was discussed, patient remains full code. More than 50% of the time spent coordinating care, discussing management plans with involved caregivers. Management plans discussed with involved personnels. Medical decision making was of moderate to high complexity , patient's has multiple comorbidities. Medications reviewed and adjusted accordingly: Yes
== END 2018-03-11 13:31 | disposition home or self-care (01) | DRG 310 ==
LOC: ER 07:45 → EH 10:52 → 3N 16:15
PROVIDERS: ADMIT Internal Medicine; ATTEND Internal Medicine
DX: I48.91 Unspecified atrial fibrillation (principal); I10 Essential (primary) hypertension; F17.210 Nicotine dependence, cigarettes, uncomplicated; G47.9 Sleep disorder, unspecified; E66.9 Obesity, unspecified; Z68.34 Body mass index [BMI] 34.0-34.9, adult; Z82.49 Family history of ischemic heart disease and other diseases of the circulatory system; Z83.3 Family history of diabetes mellitus; Z91.040 Latex allergy status; Z91.048 Other nonmedicinal substance allergy status
CPT/HCPCS: 36415; 71045; 80048; 80053; 82550; 82553; 83880; 84484; 85025; 93005; 93010; 96365; 96376; 99291; J3490

== ENCOUNTER → 2018-04-08 | Outpatient (CLI) | payer BC ==
--- NOTE | 2018-04-08 11:08 | WOMENS IMAGING REPORT ---
EXAM DESCRIPTION: 3D SCREENING MAMMO BILAT COMPLETED DATE/TIME: 04/08/2018 10:49 am REASON FOR STUDY: SCREENING MAMMO Z12.31 ENCNTR SCREEN MAMMOGRAM FOR MALIGNANT NEOPLASM OF KAYLA COMPARISON: 02/24/2016. TECHNIQUE: Standard craniocaudal and mediolateral oblique views of each breast recorded using digita l acquisition and breast tomosynthesis. LIMITATIONS: None. FINDINGS: No masses, calcifications or architectural distortion. No areas of suspicion. Read with the assistance of CAD. .[facility] - R2 Cenova Version 1.3 .[facility] - R2 Cenova Version 1.3 .[facility] - R2 Cenova Version 2.4 .[facility] - R2 Cenova Version 2.4 .[facility] - R2 [employer]or Version 9.2 IMPRESSION: NORMAL MAMMOGRAM. BIRADS 1. BREAST DENSITY: b. There are scattered areas of fibroglandular density. BIRAD: 1 NEGATIVE RECOMMENDATION: ROUTINE SCREENING COMMENT: The patient has been notified of the results by letter per [place] requirements. Additional no tification policies are in place for contacting patient with suspicious or incomplete findings. Quality ID #[id number]: The [employer] recommends an annual screening mammogram for women aged 40 years or over. This facility utilizes a reminder system to ensure that all patients receive reminder letters, and/or direct phone calls for appointments. This includes reminders for routine scr eening mammograms, diagnostic mammograms, or other Breast Imaging Interventions when appropriate. Th is patient will be placed in the appropriate reminder system. The [employer] (ACR) has developed recommendations for screening MRI of the breast s in certain patient populations, to be used in conjunction with mammography. Breast MRI surveillanc e may be appropriate for women with more than 20% lifetime risk of developing breast cancer as deter mined by genetic testing, significant family history of the disease, or history of mantle radiation f or Hodgkins Disease. ACR Practice Guidelines 2008. DBT Technology DBT is a type of tomographic mammography. With conventional mammography, overlapping breast tissue ma y make lesions difficult to detect, even with good compression. DBT uses an x-ray tube that rotates a round the breast, taking images at different angles. These images are then combined to create thin sl ices of the breast that the radiologist can view as a 3D reconstruction. The [employer] unit can perform full-field digital mammograms (2D imaging); or DBT (3D imaging); or both, in a combination mode that quickly performs both the mammogram and the tomosynthesis scan while the breast is still compressed. PQRS 6045F: Fluoroscopic imaging is not utilized for breast tomosynthesis. TECHNICAL DOCUMENTATION: FINDING NUMBER: (1) ASSESSMENT: (1) JOB ID: [id number] [employer]- All Rights Reserved Reading location - IP/workstation name: [facility]
== END ==
LOC: WI 10:29
PROVIDERS: ATTEND Physician Assistant
DX: Z12.31 Encounter for screening mammogram for malignant neoplasm of breast (principal)
CPT/HCPCS: 77063; 77067